=== PATIENT | female | born 1955 | race Caucasian/White ===

== ENCOUNTER 2023-08-24 08:55 | Outpatient (AMB) | payer MEDICARE, SELFPAY ==
[2023-08-24 10:47] VITALS: BP 138/86; PULSE 80; TEMP 36.9; O2SAT 94; BMI 33.9
--- NOTE | 2023-08-24 10:47 | AM.OFFWIN_ITS ---
Intake Vital Signs 08/24/23 10:47 Height 5 ft 6.5 in Weight 213 lb 2 oz BMI 33.9 BP 138/86 Blood Pressure Location Lt brachial Position Sitting Pulse 80 Pulse Source Pulse Oximeter Temp 98.5 F Temp Source Oral Pulse Oximetry (%) 94 Oxygen Delivery Method Room Air Intake Visit Reasons: EP, bug bits on arms and knees [phone] Intake Note: Pt presents to the office today for c/o bug bites on left arm,left and right legs. Pt states the one on her arm and right leg is more swollen. Pt states she got these bug bites on 08/22/23. Patient Tobacco Use Status: Never used Tobacco Allergies heparin Allergy (Mild, Verified 08/24/23 11:18) Unknown latex Allergy (Verified 08/24/23 11:18) Unknown nitrofurantoin [From Macrobid] Allergy (Verified 08/24/23 11:18) unknown Penicillins Allergy (Verified 08/24/23 11:18) Unknown HPI EP, bug bits on arms and knees [phone] HPI Details 67-year-old female was [place]. She was bitten by bugs. The bite on the left arm is sore. [facility] Social History Household Members: Spouse Housing: House Alcohol intake: current Alcohol intake frequency: a few times a week Patient Tobacco Use Status: Never used Tobacco Use of substances other than those prescribed or required for medical reasons: No Physical Exam Vital Signs: Last Vital Signs Temp 98.5 F 08/24/23 10:47 Pulse 80 08/24/23 10:47 BP 138/86 08/24/23 10:47 Pulse Ox 94 08/24/23 10:47 Oxygen Delivery Method Room Air 08/24/23 10:47 BMI result Body Mass Index 33.9 Skin Other: Left arm: Erythematous area with induration on the inner side of the arm. Slightly tender to touch. Assessment & Plan Assessment & Plan (1) Insect bite: Code(s): W57.XXXA - Bitten or stung by nonvenomous insect and other nonvenomous arthropods, initial encounter Plan: Antibiotics called in. If symptoms do not improve to follow-up here. Coding Level of Care Code Est Pt Level 3 (22008) Diagnoses Insect bite W57.XXXA
== END 2023-08-24 11:29 | disposition home or self-care (01) ==
PROVIDERS: PCP Nurse Practitioner; Visit Provider Internal Medicine
DX: T63.481A Toxic effect of venom of other arthropod, accidental (unintentional), initial encounter (principal)
CPT/HCPCS: 99213